=== PATIENT | male | born 1965 | race Caucasian/White ===

== ENCOUNTER 2017-05-05 16:35 | Emergency (ER) | payer BC, OTHER ==
[2017-05-05] MEDS ORDERED: Aspirin 81 MG Tab.Chew PO ONE (16:42)
--- NOTE | 2017-05-05 16:47 | EDM.PDOC ---
ED HPI GENERAL MEDICAL PROBLEM - General Chief Complaint: Chest Pain Stated Complaint: CHEST PAIN Time Seen by Provider: 05/05/17 16:40 Source of Information: Reports: Patient History Limitations: Reports: No Limitations - History of Present Illness INITIAL COMMENTS - FREE TEXT/NARRATIVE: 51 yo male here with CP that began at rest about 1 pm today. Feels like the worst heart burn he's ever had. No hx of CAD. Weak FHx of CAD. Is on meds for depression and AODM. Cholesterol level is borderline elevated. Non-smoker. No radiation of the pain which is upper anterior chest centrally, and has a smaller area in the middle of his back of pain. Onset: Today Onset Date: 05/05/17 Onset Time: 13:00 Duration: Hour(s):, Constant Location: Reports: Chest, Back Quality: Reports: Ache, Pressure Severity: Severe Improves with: Reports: None Worsens with: Reports: None Context: Reports: Other (unknown cause) Associated Symptoms: Reports: Chest Pain. 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 (see below) (none) - Related Data Allergies Allergy/AdvReac Type Severity Reaction Status Date / Time No Known Allergies Allergy Verified 05/05/17 16:53 ED ROS GENERAL - Review of Systems Review Of Systems: See Below Constitutional: Reports: No Symptoms HEENT: Reports: No Symptoms Respiratory: Reports: No Symptoms Cardiovascular: Reports: Chest Pain Endocrine: Reports: No Symptoms GI/Abdominal: Reports: No Symptoms : Reports: No Symptoms Musculoskeletal: Reports: Back Pain (center of his back) Skin: Reports: No Symptoms Neurological: Reports: No Symptoms Psychiatric: Reports: No Symptoms ED EXAM, GENERAL - Physical Exam Exam: See Below Exam Limited By: No Limitations General Appearance: Alert, WD/WN, No Apparent Distress Eye Exam: Bilateral Eye: Normal Inspection Ears: Normal External Exam, Normal Canal, Hearing Grossly Normal Ear Exam: Bilateral Ear: Auricle Normal, Canal Normal Nose: Normal Inspection, Normal Mucosa, No Blood Throat/Mouth: Normal Inspection, Normal Lips, Normal Teeth, Normal Oropharynx, Normal Voice, No Airway Compromise Head: Atraumatic, Normocephalic Neck: Normal Inspection, Supple, Non-Tender Respiratory/Chest: No Respiratory Distress, Lungs Clear, Normal Breath Sounds, No Accessory Muscle Use Cardiovascular: Regular Rate, Rhythm, No Edema GI/Abdominal: Normal Bowel Sounds, Soft, Non-Tender, No Distention Back Exam: Normal Inspection. No: CVA Tenderness (R), CVA Tenderness (L) Extremities: Normal Inspection, Normal Range of Motion, Non-Tender, No Pedal Edema Neurological: Alert, Oriented, CN II-XII Intact, Normal Cognition, No Motor/ Sensory Deficits Psychiatric: Normal Affect, Normal Mood Skin Exam: Warm, Dry, Intact, Normal Color, No Rash Lymphatic: No Adenopathy EKG INTERPRETATION EKG Date: 05/05/17 Time: 16:40 Rhythm: NSR Rate (Beats/Min): 69 [place]: Normal P-Wave: Present QRS: Normal ST-T: Elevated ([address] elevation anterior leads.) QT: Normal Comparison: NA - No Prior EKG EKG Interpretation Comments: EKG#2 here in ER-no significant change. Course - Vital Signs Text/Narrative:: No change in CP with SL NTG x 2. [facility] called @ 1815h, Last Recorded V/S: Last Vital Signs Temp 36.9 C 05/05/17 16:45 Pulse 59 L 05/05/17 17:15 Resp 24 H 05/05/17 17:30 BP 150/94 H 05/05/17 17:30 Pulse Ox 100 05/05/17 17:30 - Orders/Labs/Meds Orders: Active Orders 24 hr Category Date Time Status Cardiac Monitoring [RC] .As Directed Care 05/05/17 16:38 Active Oxygen Therapy, ED [RC] ASDIRECTED Care 05/05/17 17:08 Active Chest 1V Frontal [CR] Stat Exams 05/05/17 16:56 Taken D-DIMER QUANTITATIVE [COAG] Stat Lab 05/05/17 18:11 Ordered UA W/MICROSCOPIC [URIN] Stat Lab 05/05/17 16:51 Uncollected Nitroglycerin [Nitrostat] Med 05/05/17 16:49 Active 0.4 mg SL Q5M PRN Sodium Chloride 0.9% [Saline Flush] Med 05/05/17 16:42 Active 10 ml FLUSH ASDIRECTED PRN Saline Lock Insert [OM.PC] Routine Oth 05/05/17 16:42 Ordered EKG 12 Lead [EK] Routine Ther 05/05/17 16:37 Ordered EKG 12 Lead [EK] Routine Ther 05/05/17 17:00 Ordered Medication Orders Nitroglycerin (Nitrostat) 0.4 mg SL Q5M PRN PRN Reason: Chest Pain Sodium Chloride (Saline Flush) 10 ml FLUSH ASDIRECTED PRN PRN Reason: Keep Vein Open Labs: Laboratory Tests 05/05/17 05/05/17 05/05/17 Range/Units 17:11 17:11 17:11 WBC 6.1 (4.5-12.0) X10-3/uL RBC 5.46 (4.30-5.75) x10(6)uL Hgb 15.5 (11.5-15.5) g/dL Hct 46.5 (30.0-51.3) % MCV 85.0 (80-96) fL MCH 28.4 (27.7-33.6) pg MCHC 33.5 (32.2-35.4) g/dL RDW 13.0 (11.5-15.5) % Plt Count 305 (125-369) X10(3)uL Sodium 138 (135-145) mmol/L Potassium 4.4 (3.5-5.3) mmol/L Chloride 103 (100-110) mmol/L Carbon Dioxide 25 (23-29) mmol/L BUN 17 (5-20) mg/dL Creatinine 1.0 (0.6-1.3) mg/dL Est Cr Clr Drug Dosing 90.24 mL/min Estimated GFR (MDRD) > 60 (>60) BUN/Creatinine Ratio 17.0 (9-20) Glucose 251 H (80-116) mg/dL Calcium 9.5 (8.6-10.2) mg/dL Troponin I < 0.01 L (0.02-0.06) NG/ML Meds: Medications Generic Name Dose Route Start Last Admin Trade Name Freq PRN Reason Stop Dose Admin Nitroglycerin 0.4 mg 05/05/17 16:49 Nitrostat SL Q5M PRN Chest Pain Sodium Chloride 10 ml 05/05/17 16:42 Saline Flush FLUSH ASDIRECTED PRN Keep Vein Open Discontinued Medications Generic Name Dose Route Start Last Admin Trade Name Freq PRN Reason Stop Dose Admin Aspirin 324 mg 05/05/17 16:42 Aspirin PO 05/05/17 16:43 ONETIME ONE Clopidogrel Bisulfate 600 mg 10/05/17 16:57 Plavix PO 05/05/17 16:58 ONETIME ONE Heparin Sodium (Porcine) 5,000 units 05/05/17 16:57 Heparin Sodium IVPUSH 05/05/17 16:58 ONETIME ONE Metoprolol Tartrate 50 mg 05/05/17 16:56 Lopressor PO 05/05/17 16:57 ONETIME ONE Metoprolol Tartrate Confirm 05/05/17 17:06 Lopressor Administered 05/05/17 17:07 Dose 50 mg .ROUTE .STK-MED ONE Morphine Sulfate 4 mg 05/05/17 17:06 Morphine IVPUSH 05/05/17 17:07 ONETIME ONE Morphine Sulfate 2 mg 05/05/17 17:50 Morphine IVPUSH 05/05/17 17:51 ONETIME ONE - Radiology Interpretation Free Text/Narrative:: CXR-negative Departure - Departure Time of Disposition: 18:35 Disposition: DC/Tfer to Acute Hospital 02 Reason for Transfer *Q: Other Condition: Fair Clinical Impression: Chest pain Qualifiers: Chest pain type: unspecified Qualified Code(s): R07.9 - Chest pain, unspecified Referrals: PCP,None [Primary Care Provider] - Forms: ED Department Discharge - My Orders Last 24 Hours: My Active Orders 05/05/17 16:37 EKG 12 Lead [EK] Routine 05/05/17 16:38 Cardiac Monitoring [RC] .As Directed 05/05/17 16:42 Sodium Chloride 0.9% [Saline Flush] 10 ml FLUSH ASDIRECTED PRN Saline Lock Insert [OM.PC] Routine 05/05/17 16:49 Nitroglycerin [Nitrostat] 0.4 mg SL Q5M PRN 05/05/17 16:51 UA W/MICROSCOPIC [URIN] Stat 05/05/17 16:56 Chest 1V Frontal [CR] Stat 05/05/17 17:00 EKG 12 Lead [EK] Routine 05/05/17 17:08 Oxygen Therapy, ED [RC] ASDIRECTED 05/05/17 18:11 D-DIMER QUANTITATIVE [COAG] Stat - Assessment/Plan Last 24 Hours: My Active Orders 05/05/17 16:37 EKG 12 Lead [EK] Routine 05/05/17 16:38 Cardiac Monitoring [RC] .As Directed 05/05/17 16:42 Sodium Chloride 0.9% [Saline Flush] 10 ml FLUSH ASDIRECTED PRN Saline Lock Insert [OM.PC] Routine 05/05/17 16:49 Nitroglycerin [Nitrostat] 0.4 mg SL Q5M PRN 05/05/17 16:51 UA W/MICROSCOPIC [URIN] Stat 05/05/17 16:56 Chest 1V Frontal [CR] Stat 05/05/17 17:00 EKG 12 Lead [EK] Routine 05/05/17 17:08 Oxygen Therapy, ED [RC] ASDIRECTED 05/05/17 18:11 D-DIMER QUANTITATIVE [COAG] Stat
[2017-05-05] MEDS: Nitroglycerin 0.4 MG Tab.SL SL PRN ×2 (16:51→17:30)
[2017-05-05] MEDS ORDERED: Metoprolol Tartrate 50 MG Tab PO ONE (16:56)
[2017-05-05] MEDS ORDERED: Clopidogrel 75 MG Tab PO ONE (16:57)
[2017-05-05] MEDS ORDERED: Heparin Sodium 5,000 Units/ML Vial IVPUSH ONE (16:57)
[2017-05-05] MEDS ORDERED: Morphine 4 MG/ML Syringe IVPUSH ONE (17:06)
[2017-05-05] MEDS ORDERED: Metoprolol Tartrate 25 MG Tab ONE (17:06)
[2017-05-05] MEDS: Sodium Chloride 0.9% 10 ML Syringe FLUSH PRN ×2 (17:10→18:53)
[2017-05-05] MEDS ORDERED: Morphine 2 MG/ML Syringe IVPUSH ONE (17:50)
[2017-05-05] MEDS ORDERED: Alum Hydroxide/Mag Hydroxide 15 ML, Lidocaine 2% 15 ML PO ONE ×2 (18:18)
[2017-05-05 18:38] VITALS: BP 150/94
--- NOTE | 2017-05-06 11:22 | CR ---
INDICATION: Chest pain. CHEST: An upright AP portable view of the chest was obtained 05/05/2017 and compared with PA view of 05/08/2013. The heart did not appear enlarged, allowing for poor inspiration and the AP positioning. The aorta is tortuous. Overlying EKG leads are noted. An active infiltrate or effusion was not identified. The study was obtained with slight lordotic angulation. IMPRESSION: No acute process. No definite interval change compared with a PA view of 2012. MTDD
== END 2017-05-05 19:31 ==
LOC: FB.ED 16:35
DX: R07.9 Chest pain, unspecified (principal)
CPT/HCPCS: 36415; 71010; 80048; 84484; 85027; 85379; 93005; 96374; 96375; 96376; 99285; A9270; J1644; J2270; J7050